=== PATIENT | female | born 1975 | race Hispanic/Latino ===

== ENCOUNTER 2020-11-12 12:52 | Inpatient (IN) | payer SELFPAY ==
[2020-11-12] MEDS ORDERED: IBUPROFEN 400 MG TAB ONE ×2 (13:40→17:16)
[2020-11-12 14:31] LABS: SARS-COV-2 RT PCR NEGATIVE (NEGATIVE)
[2020-11-12 16:38] LABS: Urine Blood 3+ (Negative); Urine Glucose Negative (Negative); Urine Protein 2+ (Negative); Urine Specific Gravity 1.025 (1.005-1.030); Urine pH 5.5 (5.0-7.0)
[2020-11-12 16:45] LABS: Absolute Lymphocytes (CBC) 1.5 K/uL (0.7-4.9); Basophils % 0.3 % (0-1.3); Hematocrit 36.3 % (36.0-45.0); Lymphocytes % 9.4 % (15.3-44.8); MPV 6.9 fL (7.6-11.3); RBC Red Blood Cell Count 4.12 M/uL (3.86-4.86)
[2020-11-12 16:53] LABS: Protime INR 1.32
[2020-11-12 16:57] LABS: Urine Bacteria >50 /HPF (<20); Urine RBC <5 /HPF (NONE SEEN)
[2020-11-12 17:05] LABS: ALT/SGPT 75 U/L (12-78); AST/SGOT 41 U/L (15-37); Albumin 3.5 g/dL (3.4-5.0); Alkaline Phosphatase 194 U/L (45-117); BUN Blood Urea Nitrogen 13 mg/dL (7-18); Bicarbonate 23 mmol/L (21-32); Bilirubin Direct 0.2 mg/dL (0-0.2); Bilirubin Total 0.4 mg/dL (0.2-1.0); Creatine Phosphokinase 29 U/L (26-192); Glucose Level 117 mg/dL (74-106); Lipase 50 U/L (73-393); Potassium 3.6 mmol/L (3.5-5.1); Protein, Total 8.7 g/dL (6.4-8.2); Sodium Level 131 mmol/L (136-145); Troponin (Emerg Dept Use Only) < 0.02 ng/mL (0.0-0.045)
[2020-11-12 17:13] LABS: Urine Specific Gravity/Preg 1.025 (1.005-1.030)
--- NOTE | 2020-11-12 17:15 | RAD REPORT ---
EXAM DESCRIPTION: RAD - Chest Pa And Lat (2 Views) - 11/12/2020 4:58 pm CLINICAL HISTORY: COUGH Chest pain. COMPARISON: <Comparisons> FINDINGS: Mild bibasilar lung opacities are present likely related to pulmonary infection. The heart is normal in size. No displaced fractures.
[2020-11-12] MEDS ORDERED: NA CHLORIDE 0.9% 500 ML ONE (17:16)
[2020-11-12] MEDS ORDERED: CEFTRIAXONE/SWI 1gm 1 GM/10 ML SYR ONE (17:16)
[2020-11-12] MEDS ORDERED: NA CHLORIDE 0.9% 2,000 ML ONE (17:16)
--- NOTE | 2020-11-12 17:22 | RAD REPORT ---
EXAM DESCRIPTION: CT - Stone Protocol - 11/12/2020 5:01 pm CLINICAL HISTORY: Flank pain. FLANK PAIN COMPARISON: No comparisons TECHNIQUE: Axial images were obtained without oral or IV contrast. Lack of contrast limits solid org an and vascular assessment. The [id number] spans the entirety of the system partially obscuring uppermost abdomen and lung bases. Coronal reformatted images were obtained and reviewed. All CT scans are performed using dose optimization technique as appropriate and may include automated exposure control or mA/KV adjustment according to patient size. FINDINGS: Mild subsegmental atelectasis is seen in both lung bases. Small hiatal hernia. Imaged portions of the liver and spleen show no suspicious findings on non-contrast imaging.Gallbladd er is distended. The pancreas and adrenal glands are normal. No pathologic lymphadenopathy in the abd omen or pelvis. No urinary tract stones or obstructive uropathy. No bowel obstruction, free air, free fluid or abscess. Normal appendix noted.Small fat containing umb ilical hernia. No significant bony abnormality. IMPRESSION: No urinary tract stones or obstructive uropathy. Gallbladder distention is seen. Recommend followup gallbladder ultrasound. Linear atelectasis is seen in both posterior lung bases.
--- NOTE | 2020-11-12 18:18 | ER ---
Nurse's Notes [facility] Name: Marla Sue Age: 45 yrs Sex: Female : 1975 Arrival Date: 11/12/2020 Time: 12:56 Bed 18 Private MD: Diagnosis: UTI/ Urinary tract infection, site not specified;Pneumonia due to other specified infectious organisms;Other specified sepsis Presentation: 11/12 13:14 Chief complaint: Patient states: body aches, fever, cough and decreased appetite that ss began Tuesday. negative covid test yesterday. Coronavirus screen: Client denies travel out of the [place] in the last 14 days. Ebola Screen: Patient denies exposure to infectious person. Patient denies travel to an Ebola-affected area in the 21 days before illness onset. Initial Sepsis Screen: Does the patient meet any 2 criteria? No. Patient's initial sepsis screen is negative. Does the patient have a suspected source of infection? No. Patient's initial sepsis screen is negative. Risk Assessment: Do you want to hurt yourself or someone else? Patient reports no desire to harm self or others. Onset of symptoms was October 2020. 13:14 Method Of Arrival: Ambulatory ss 13:14 Acuity: MARGUERITE 4 ss Historical: - Allergies: 13:16 No Known Allergies; ss - Home Meds: 13:16 None [Active]; ss - PMHx: 13:16 None; ss - PSHx: 13:16 None; ss - Immunization history:: Client reports receiving the 2nd dose of the Covid vaccine. - Social history:: Smoking status: Patient denies any tobacco usage or history of. Screenin:59 Abuse screen: Denies threats or abuse. Nutritional screening: No deficits noted. aa5 Tuberculosis screening: No symptoms or risk factors identified. Fall Risk None identified. Assessment: 15:50 General: Appears uncomfortable, Behavior is calm, cooperative. Pain: Complains of pain aa5 in left side of head Pain currently is 9 out of 10 on a pain scale. Quality of pain is described as aching, Pain began 2-3 days ago. Is continuous. Neuro: Level of Consciousness is awake, alert, obeys commands, Oriented to person, place, time, situation. Cardiovascular: Heart tones S1 S2 present Rhythm is regular. Respiratory: Reports slight cough Airway is patent Respiratory effort is even, unlabored, Respiratory pattern is regular, symmetrical, Breath sounds are clear bilaterally. GI: Abdomen is round non-distended, Bowel sounds present X 4 quads. Abd is soft and non tender X 4 quads. Reports LUQ and LLQ pain. Report vomiting on Tuesday, denies any vomiting since then. Denies diarrhea. : No signs and/or symptoms were reported regarding the genitourinary system. Denies burning with urination. EENT: No signs and/or symptoms were reported regarding the EENT system. Derm: Skin is pink, warm \T\ dry. Musculoskeletal: Range of motion: intact in all extremities. 23:58 Reassessment: Patient is alert, oriented x 3, equal unlabored respirations, skin ch4 warm/dry/pink. Vital Signs: 13:14 BP 134 / 84; Pulse 127; Resp 20; Temp 103(O); Pulse Ox 96% ; Weight 76.2 kg; Height 5 ss ft. 3 in. (160.02 cm); Pain 10/10; 15:56 BP 121 / 78; Pulse 102; Resp 18 S; Temp 99.1(O); Pulse Ox 95% on R/A; aa5 17:00 BP 116 / 77; Pulse 97; Resp 18; Pulse Ox 96% on R/A; kg 18:00 BP 117 / 79; Pulse 104; Resp 18; Pulse Ox 96% on R/A; kg 18:49 BP 125 / 70; Pulse 104; Resp 20; Temp 98.3; Pulse Ox 99% on R/A; Pain 0/10; ch5 20:00 BP 122 / 78; Pulse 100; Resp 20; Pulse Ox 96% ; kg 22:42 BP 125 / 82; Pulse 112; Resp 18; Temp 99.1(TE); Pulse Ox 99% on R/A; ch4 23:57 BP 131 / 82; Pulse 113; Resp 18; Temp 99.1; Pulse Ox 98% on R/A; ch4 13:14 Body Mass Index 29.76 (76.20 kg, 160.02 cm) ED Course: 12:56 Patient arrived in ED. as 13:16 Triage completed. ss 13:16 Arm band placed on right wrist. ss 14:46 Flu Sent. sv 15:19 Page, Jeffrey, PA is PHCP. cp 15:19 Jeffrey Guerrero MD is Attending Physician. cp 16:10 Zari Granados, RN is Primary Nurse. kg 16:15 Bed in low position. Call light in reach. Side rails up X 1. Warm blanket given. Verbal jp3 reassurance given. Pulse ox on. NIBP on. 16:15 Inserted saline lock: 18 gauge in right wrist, using aseptic technique. Blood collected.jp3 16:15 Initial lab(s) drawn, by me, sent to lab. First set of blood cultures drawn by me. jp3 16:30 Second set of blood cultures drawn by me. jp3 16:31 Urine collected: clean catch specimen, clear, davis colored. jp3 16:54 XRAY Chest Pa And Lat (2 Views) In Process Unspecified. EDMS 17:02 CT Stone Protocol In Process Unspecified. EDMS 18:15 US Abdomen Limited In Process Unspecified. EDMS 18:17 Zeb Ureña PA is Hospitalizing Provider. cp 11/13 01:24 Naseem Cervantes is Hospitalizing Provider. cp Administered Medications: 11/12 13:17 Drug: Motrin (ibuprofen) 800 mg Route: PO; ss 17:20 Drug: Rocephin - (cefTRIAXone) 1 grams Route: IVPB; Infused Over: 30 mins; Site: right kg wrist; 20:26 Follow up: Response: No adverse reaction; IV Status: Completed infusion; IV Intake: 10mlkg 17:20 Drug: Zithromax (azithromycin) 500 mg Route: IVPB; Infused Over: 1 hrs; Site: right kg wrist; 20:26 Follow up: Response: No adverse reaction; IV Status: Completed infusion kg 17:40 Drug: NS 0.9% (30 ml/kg) 30 ml/kg Route: IV; Rate: bolus; Site: right wrist; kg 17:52 Drug: NS 0.9% (30 ml/kg) 30 ml/kg Route: IV; Rate: bolus; Site: right wrist; kg 18:24 Drug: NS 0.9% (30 ml/kg) 30 ml/kg Route: IV; Rate: bolus; Site: right wrist; kg 20:27 Follow up: Response: No adverse reaction; IV Status: Completed infusion; IV Intake: kg 2286ml Point of Care Testing: Urine : 16:42 hCG Reading: Negative; Control Reading: Positive; jp3 Intake: 20:26 IV: 10ml; Total: 10ml. kg 20:27 IV: 2286ml; Total: 2296ml. kg Outcome: 18:17 Decision to Hospitalize by Provider. domingo 11/13 03:29 Patient left the ED. ch4 Signatures: Dispatcher [employer] EDCici Melissa, RN RN Olga Morris Audri, RN RN aa5 Katya Khoury RN RN ss Jeffrey Jackman, ESTHER PA Jer Pereira jp3 Zari Granados, LIN RN kg Lucia Painter, RN RN ch4 Rafal Patterson RN RN ch5
--- NOTE | 2020-11-12 18:19 | EDPHYS ---
Physician Documentation [facility] Name: Marla Sue Age: 45 yrs Sex: Female : 1975 Arrival Date: 11/12/2020 Time: 12:56 Bed 18 Private MD: ED Physician Jeffrey Guerrero HPI: 11/12 16:00 This 45 yrs old Female presents to ER via Ambulatory with complaints of Pain cp All Over, Decreased Appetite, Fever. 16:00 The patient reports fever, with an emergency department temperature of 103 degrees cp Fahrenheit. 16:00 Onset: The symptoms/episode began/occurred 3 day(s) ago. Associated signs and symptoms: cp Pertinent positives: abdominal pain, cough, headache, Pertinent negatives: diarrhea, vomiting. Historical: - Allergies: 13:16 No Known Allergies; ss - Home Meds: 13:16 None [Active]; ss - PMHx: 13:16 None; ss - PSHx: 13:16 None; ss - Immunization history:: Client reports receiving the 2nd dose of the Covid vaccine. - Social history:: Smoking status: Patient denies any tobacco usage or history of. ROS: 16:05 Constitutional: Positive for body aches, poor PO intake, Negative for fever. cp 16:05 Eyes: Negative for injury, pain, redness, and discharge. cp 16:05 ENT: Negative for drainage from ear(s), ear pain, sore throat, difficulty swallowing, difficulty handling secretions. 16:05 Cardiovascular: Negative for chest pain, edema, palpitations. 16:05 Respiratory: Positive for cough, with no reported sputum, Negative for shortness of breath, wheezing. 16:05 Abdomen/GI: Positive for abdominal pain, anorexia, of the left upper quadrant and left lower quadrant. 16:05 : Negative for urinary symptoms, pelvic pain, vaginal bleeding, vaginal discharge. 16:05 Skin: Negative for rash. 16:05 Neuro: Positive for headache, Negative for altered mental status, dizziness, weakness. Exam: 16:10 Constitutional: The patient appears in no acute distress, alert, awake, cp non-diaphoretic, non-toxic, well developed, well nourished. 16:10 Head/Face: Normocephalic, atraumatic. cp 16:10 Eyes: Periorbital structures: appear normal, Conjunctiva: normal, no exudate, no injection, Sclera: no appreciated abnormality, Lids and lashes: appear normal, bilaterally. 16:10 ENT: External ear(s): are unremarkable, Nose: is normal, Mouth: Lips: moist, Oral mucosa: moist, Posterior pharynx: Airway: no evidence of obstruction, patent, Tonsils: are normal in appearance. 16:10 Neck: ROM/movement: is normal, is supple, without pain, no range of motions limitations, no meningismus. 16:10 Chest/axilla: Inspection: normal, Palpation: is normal, no crepitus, no tenderness. 16:10 Cardiovascular: Rate: tachycardic, Rhythm: regular, Edema: is not appreciated, JVD: is not appreciated. 16:10 Respiratory: the patient does not display signs of respiratory distress, Respirations: normal, no use of accessory muscles, no retractions, labored breathing, is not present, Breath sounds: are clear throughout, no decreased breath sounds, no stridor, no wheezing. 16:10 Abdomen/GI: Inspection: abdomen appears normal, Bowel sounds: active, all quadrants, Palpation: soft, in all quadrants, mild abdominal tenderness, in the left upper quadrant and left lower quadrant, rebound tenderness, is not appreciated, voluntary guarding, is not appreciated, involuntary guarding, is not appreciated. 16:10 Back: CVA tenderness, is absent. 16:10 Skin: cellulitis, is not appreciated, no rash present. 16:10 Neuro: Orientation: to person, place \T\ time. Mentation: is normal, Motor: is normal. 17:25 ECG was reviewed by the Attending Physician. cp Vital Signs: 13:14 BP 134 / 84; Pulse 127; Resp 20; Temp 103(O); Pulse Ox 96% ; Weight 76.2 kg; Height 5 ss ft. 3 in. (160.02 cm); Pain 10/10; 15:56 BP 121 / 78; Pulse 102; Resp 18 S; Temp 99.1(O); Pulse Ox 95% on R/A; aa5 17:00 BP 116 / 77; Pulse 97; Resp 18; Pulse Ox 96% on R/A; kg 18:00 BP 117 / 79; Pulse 104; Resp 18; Pulse Ox 96% on R/A; kg 18:49 BP 125 / 70; Pulse 104; Resp 20; Temp 98.3; Pulse Ox 99% on R/A; Pain 0/10; ch5 20:00 BP 122 / 78; Pulse 100; Resp 20; Pulse Ox 96% ; kg 22:42 BP 125 / 82; Pulse 112; Resp 18; Temp 99.1(TE); Pulse Ox 99% on R/A; ch4 23:57 BP 131 / 82; Pulse 113; Resp 18; Temp 99.1; Pulse Ox 98% on R/A; ch4 13:14 Body Mass Index 29.76 (76.20 kg, 160.02 cm) ss MDM: 15:49 Patient medically screened. 19:05 Data reviewed: vital signs, nurses notes, lab test result(s), EKG, radiologic studies, cp CT scan, plain films, ultrasound. 19:05 Test interpretation: by ED physician or midlevel provider: ECG, plain radiologic cp studies. 11/12 13:22 Order name: Flu ss 11/12 14:31 Order name: COVID-19/FLU A+B; Complete Time: 16:17 EDMS 11/12 17:40 Interpretation: Reviewed. 11/12 15:54 Order name: Urine Microscopic Only; Complete Time: 17:32 11/12 17:32 Interpretation: Normal except: UWBC 5-10; UBACT >50. 11/12 15:54 Order name: Basic Metabolic Panel; Complete Time: 17:32 11/12 17:33 Interpretation: Normal except: NA 131; GLUC 117. 11/12 15:54 Order name: Blood Culture Adult (2) 11/12 15:54 Order name: CBC with Diff; Complete Time: 17:32 11/12 17:33 Interpretation: Normal except: WBC 15.40; PLT 553; MPV 6.9; KELLY% 79.5; LYM% 9.4; NEUT A cp 12.3; MNA 1.7. 11/12 15:54 Order name: CPK; Complete Time: 17:32 cp 11/12 15:54 Order name: LFT's; Complete Time: 17:32 cp 11/12 17:33 Interpretation: Normal except: AST 41; ALK 194; TP 8.7; GLOB 5.2; A/G 0.7. 11/12 15:54 Order name: Lactate; Complete Time: 17:32 cp 11/12 17:34 Interpretation: Within normal limits. cp 11/12 15:54 Order name: Lipase; Complete Time: 17:32 cp 11/12 15:54 Order name: Procalcitonin; Complete Time: 17:38 cp 11/12 17:38 Interpretation: Abnormal: Procalcitonin 32.38. cp 11/12 15:54 Order name: Protime (+inr); Complete Time: 17:32 cp 11/12 15:54 Order name: XRAY Chest Pa And Lat (2 Views); Complete Time: 17:32 cp 11/12 15:54 Order name: Urine Dipstick-Ancillary (obtain specimen); Complete Time: 16:32 cp 11/12 15:54 Order name: Urine Test (obtain specimen); Complete Time: 16:32 cp 11/12 15:54 Order name: Troponin (emerg Dept Use Only); Complete Time: 17:32 cp 11/12 15:54 Order name: Urine Culture cp 11/12 15:54 Order name: Accucheck; Complete Time: 16:31 cp 11/12 15:54 Order name: Cardiac monitoring; Complete Time: 17:51 cp 11/12 16:29 Order name: Glucose, Ancillary Testing; Complete Time: 16:40 EDMS 11/12 16:38 Order name: Urine Dipstick-Ancillary; Complete Time: 16:40 EDMS 11/12 17:39 Interpretation: Normal except: UKET Trace; UBLD 3+; UPROT 2+; U NIT Positive; UESTR cp Trace. 11/12 16:40 Order name: CT Stone Protocol; Complete Time: 17:32 cp 11/12 16:40 Order name: Urine --Ancillary (enter results); Complete Time: 17:32 bd 11/12 17:36 Order name: US Abdomen Limited; Complete Time: 19:00 cp 11/12 15:54 Order name: EKG - Nurse/Tech; Complete Time: 17:51 cp 11/12 15:54 Order name: IV Saline Lock - Large Bore; Complete Time: 16:33 cp 11/12 15:54 Order name: Labs collected and sent; Complete Time: 16:31 cp 11/12 15:54 Order name: O2 Per Protocol; Complete Time: 16:31 cp 11/12 15:54 Order name: O2 Sat Monitoring; Complete Time: 16:31 cp EC:25 Rate is 90 beats/min. Rhythm is regular. CT interval is normal. QRS interval is normal. cp QT interval is normal. T waves are Inverted in lead aVR. Interpreted by me. Reviewed by me. Administered Medications: 13:17 Drug: Motrin (ibuprofen) 800 mg Route: PO; ss 17:20 Drug: Rocephin - (cefTRIAXone) 1 grams Route: IVPB; Infused Over: 30 mins; Site: right kg wrist; 20:26 Follow up: Response: No adverse reaction; IV Status: Completed infusion; IV Intake: 10mlkg 17:20 Drug: Zithromax (azithromycin) 500 mg Route: IVPB; Infused Over: 1 hrs; Site: right kg wrist; 20:26 Follow up: Response: No adverse reaction; IV Status: Completed infusion kg 17:40 Drug: NS 0.9% (30 ml/kg) 30 ml/kg Route: IV; Rate: bolus; Site: right wrist; kg 17:52 Drug: NS 0.9% (30 ml/kg) 30 ml/kg Route: IV; Rate: bolus; Site: right wrist; kg 18:24 Drug: NS 0.9% (30 ml/kg) 30 ml/kg Route: IV; Rate: bolus; Site: right wrist; kg 20:27 Follow up: Response: No adverse reaction; IV Status: Completed infusion; IV Intake: kg 2286ml Point of Care Testing: Urine : 16:42 hCG Reading: Negative; Control Reading: Positive; jp3 Disposition: 11/13 14:51 Co-signature as Attending Physician, Jeffrey Guerrero MD I agree with the assessment and zuri plan of care. Disposition Summary: 11/12/20 18:17 Hospitalization Ordered Hospitalization Status: Inpatient Admission cp Condition: Fair cp Problem: new cp Symptoms: have improved cp Bed/Room Type: Standard cp Location: Telemetry/MedSurg (Inpatient)(11/13/20 01:14) bb Room Assignment: 210(11/13/20 01:14) bb Provider: Naseem Cervantes(11/13/20 01:24) cp Diagnosis - UTI/ Urinary tract infection, site not specified cp - Pneumonia due to other specified infectious organisms cp - Other specified sepsis cp Forms: - Medication Reconciliation Form cp - SBAR form cp Signatures: Dispatcher [employer] EDMS Jeffrey Guerrero MD MD cha Ballard, Brenda, RN RN bb Katya Khoury RN RN ss Cindy Uriostegui RN RN tl1 Jeffrey Jackman PA PA cp Graham, Kristen, LIN RN kg Corrections: (The following items were deleted from the chart) 11/12 13:51 13:19 CORONAVIRUS+MR.LAB.BRZ ordered. EDMS EDMS 13:52 13:23 Influenza Screen (A ordered. EDMS EDMS 21:18 18:17 Telemetry/MedSurg (Inpatient) cp tl1 21:18 18:17 cp tl1 11/13 01:14 11/12 21:18 [facility] ER HOLD tl1 11/13 01:14 11/12 21:18 ERHOLD- tl1 11/13 01:24 11/12 18:17 Zeb Ureña cp cp
--- NOTE | 2020-11-12 18:36 | RAD REPORT ---
EXAM DESCRIPTION: US - Abdomen Exam Limited - 11/12/2020 6:17 pm CLINICAL HISTORY: gallbladder distension;Abd pain COMPARISON: No comparisons FINDINGS: The gallbladder demonstrates distention however no gallstones. No pericholecystic fluid or gallbladder wall thickening. The common bile duct is normal measuring 4 mm. The liver demonstrates prominent fatty liver. IMPRESSION: No worrisome gallbladder/ biliary tree findings. Gallbladder distention may be related to fasting state. Prominent diffuse fatty liver.
--- NOTE | 2020-11-12 20:46 | P.HP ---
Certification for Inpatient Patient admitted to: Inpatient With expected LOS: <2 Midnights Patient will require the following post-hospital care: None Practitioner: I am a practitioner with admitting privileges, knowledge of patient current condition, hospital course, and medical plan of care. Services: Services provided to patient in accordance with Admission requirements found in Title 42 Section 412.3 of the Code of Federal Regulations Patient History Date of Service: 11/12/20 Primary Care Provider: Fredy Reason for admission: UTI, pneumonia History of Present Illness: Ms. Sue is a 45 yo F who presents with four days of fever of 103F, malaise, anorexia, nausea and vomiting. She also reports abdominal pain, dry cough, headache, night sweats and chills, mild SOB. Denies dysuria, hematuria. She initially flagged sepsis, and received sepsis protocol fluids, ibuprofen, ceftriaxone and azithromycin in the ED. Vitals have improved. Lactate normal. Procal 32.38. Wbc 15.4. Na 131. alk phos 194. CXR shows mild bibasilar lung opacities likely related to pulmonary infection. CT abdomen shows no urinary tract stones or obstructive uropathy, gallbladder distention seen. Ultrasound of the gallbladder showed no worrisome gallbladder/biliary tree findings, gallbladder distention may be related to fasting state. UA positive for nitrites and leukocyte esterase. Home medications list reviewed: No - Past Medical/Surgical History Has patient received pneumonia vaccine in the past: No Diabetic: No Past Medical History: Patient denies medical history Past Surgical History: Patient denies surgical history - Family History Family History: Reviewed- Non-Contributory - Social History Smoking Status: Never smoker Alcohol use: No CD- Drugs: No Caffeine use: No Place of Residence: Home Review of Systems 10-point ROS is otherwise unremarkable General: Fever, Chills, Sweats, Malaise, As per HPI Respiratory: Cough, Shortness of Breath, As per HPI Gastrointestinal: Nausea, Vomiting, Abdominal Pain, As per HPI Physical Examination - Physical Exam General: Alert, In no apparent distress HEENT: Atraumatic, PERRLA, Mucous membr. moist/pink, EOMI, Sclerae nonicteric Neck: Supple, 2+ carotid pulse no bruit, No LAD, Without JVD or thyroid abnormality Respiratory: Normal air movement, Rhonchi/gurgles Cardiovascular: Regular rate/rhythm, Normal S1 S2, Other (tachycardic) Capillary refill: <2 Seconds Gastrointestinal: Normal bowel sounds, No ascites, No masses, No rebound, No guarding, Tenderness Musculoskeletal: No tenderness Integumentary: No rashes Neurological: Normal speech, Normal strength at 5/5 x4 extr, Normal tone, Normal affect Lymphatics: No axilla or inguinal lymphadenopathy - Studies Laboratory Data (last 24 hrs) 11/12/20 16:15: PT 15.2 H, INR 1.32 11/12/20 16:15: WBC 15.40 H, Hgb 12.2, Hct 36.3, Plt Count 553 H 11/12/20 16:15: Sodium 131 L, Potassium 3.6, BUN 13, Creatinine 0.57, Glucose 117 H, Total Bilirubin 0.4, AST 41 H, ALT 75, Alkaline Phosphatase 194 H, Lipase 50 L Assessment and Plan - Problems (Diagnosis) (1) UTI (urinary tract infection) Current Visit: Yes Status: Acute Qualifiers: Urinary tract infection type: site unspecified Hematuria presence: with hematuria Qualified Code(s): N39.0 - Urinary tract infection, site not specified; R31.9 - Hematuria, unspecified (2) Pneumonia Current Visit: Yes Status: Acute Qualifiers: Pneumonia type: due to unspecified organism Laterality: bilateral Lung location: lower lobe of lung Qualified Code(s): J18.9 - Pneumonia, unspecified organism - Plan continue IV ceftriaxone and azithromycin tylenol PRN for fever continue IVF hydration repeat procal in the AM pain management as needed blood, sputum, and urine cultures pending DVT ppx Discharge Plan: Home Plan to discharge in: 48 Hours - Advance Directives Does patient have a Living Will: No Does patient have a Durable POA for Healthcare: No - Code Status/Comfort Care Code Status Assessed: Yes (full code ) Critical Care: No Time Spent Managing Pts Care (In Minutes): 70
[2020-11-13] MEDS ORDERED: BENZONATATE 100 MG CAP PO PRN (01:32)
[2020-11-13] MEDS: NA CHLORIDE 0.9% 1,000 ML IV SCH ×3 (01:32→20:29)
[2020-11-13] MEDS: ACETAMINOPHEN 500 MG TAB PO PRN ×4 (01:47→17:31)
[2020-11-13 01:52] VITALS: BMI 29.7
[2020-11-13] MEDS ORDERED: ACETAMINOPHEN 500 MG TAB ONE (01:59)
--- NOTE | 2020-11-13 03:13 | P.INFCA ---
Sepsis Focused Assessment - Focused Assessment Complete? Sepsis Focused Assessment Completed?: Yes - Sepsis Screen Result Severe Sepsis: Negative Septic Shock: Negative - Evaluation Current stage of sepsis: Ruled out Reason for ruling out sepsis: vitals improved - Vital Signs Reviewed: Yes Temperature: 98.1 F Heart rate: 111 Respiratory Rate: 26 O2 Sat by Pulse Oximetry: 91 - Examination Heart: Tachycardia Lungs: Diminished air movement, Rhonchi Peripheral pulses: 3+ Normal Peripheral pulse location: Radial Capillary refill: <2 Seconds Skin examination: Normal turgor
[2020-11-13 04:02] LABS: Absolute Lymphocytes (CBC) 1.8 K/uL (0.7-4.9); Basophils % 0.6 % (0-1.3); Hematocrit 32.5 % (36.0-45.0); Lymphocytes % 11.3 % (15.3-44.8); MPV 6.7 fL (7.6-11.3); RBC Red Blood Cell Count 3.68 M/uL (3.86-4.86)
[2020-11-13 04:32] LABS: ALT/SGPT 62 U/L (12-78); AST/SGOT 30 U/L (15-37); Albumin 2.9 g/dL (3.4-5.0); Alkaline Phosphatase 177 U/L (45-117); BUN Blood Urea Nitrogen 8 mg/dL (7-18); Bicarbonate 23 mmol/L (21-32); Bilirubin Total 0.3 mg/dL (0.2-1.0); Glucose Level 114 mg/dL (74-106); HDL Cholesterol 33 mg/dL (40-60); LDL Cholesterol, Calculated 109 (<130); Phosphorus 2.8 mg/dL (2.5-4.9); Potassium 3.7 mmol/L (3.5-5.1); Protein, Total 7.4 g/dL (6.4-8.2); Sodium Level 137 mmol/L (136-145); Thyroid Stimulating Hormone 0.433 uIU/mL (0.360-3.740)
[2020-11-13] MEDS: MORPHINE 2 MG/ML SYR IV PRN ×2 (05:26→20:29)
[2020-11-13] MEDS: ENOXAPARIN 40 MG/0.4 ML SQ SCH (08:30)
--- NOTE | 2020-11-13 13:15 | P.PN ---
Subjective Date of Service: 11/13/20 Primary Care Provider: Fredy Chief Complaint: UTI, pneumonia Subjective: Improving (fever and headache are better but still present) Review of Systems 10-point ROS is otherwise unremarkable Physical Examination - Vital Signs Temperature: 98.8 F Blood Pressure: 111/61 Pulse: 117 Respirations: 19 Pulse Ox (%): 95 - Physical Exam General: Alert, Oriented x3, Cooperative, Other (appears mildly uncomfortable) HEENT: Atraumatic, Normocephalic Neck: Supple Respiratory: Normal air movement Cardiovascular: No edema, Other (tachycardic) Capillary refill: <2 Seconds Gastrointestinal: Normal bowel sounds, Soft and benign, No tenderness Musculoskeletal: No swelling, No contractures Integumentary: No rashes, No breakdown, No cyanosis, Other (warm) Neurological: Normal speech, Normal tone, Normal affect Lymphatics: No axilla or inguinal lymphadenopathy - Studies Laboratory Data (last 24 hrs) 11/12/20 16:15: PT 15.2 H, INR 1.32 11/12/20 16:15: WBC 15.40 H, Hgb 12.2, Hct 36.3, Plt Count 553 H 11/12/20 16:15: Sodium 131 L, Potassium 3.6, BUN 13, Creatinine 0.57, Glucose 117 H, Total Bilirubin 0.4, AST 41 H, ALT 75, Alkaline Phosphatase 194 H, Lipase 50 L Assessment And Plan - Current Problems (Diagnosis) (1) Pneumonia Current Visit: Yes Status: Acute Qualifiers: Pneumonia type: due to unspecified organism Laterality: bilateral Lung location: lower lobe of lung Qualified Code(s): J18.9 - Pneumonia, unspecified organism (2) UTI (urinary tract infection) Current Visit: Yes Status: Acute Qualifiers: Urinary tract infection type: site unspecified Hematuria presence: with hematuria Qualified Code(s): N39.0 - Urinary tract infection, site not specified; R31.9 - Hematuria, unspecified - Plan continue IV ceftriaxone and azithromycin tylenol PRN for fever continue IVF hydration continue to monitor BMP, CBC, procal pain management as needed urine preliminary shows gram neg rods blood, sputum, and urine cultures pending DVT ppx
[2020-11-13] MEDS: AZITHROMYCIN IV 500 MG in NA CHLORIDE 0.9% 250 ML IVPB SCH (13:43)
[2020-11-13] MEDS ORDERED: CEFTRIAXONE 1 GM/NS 50 ML 1 GM/50 ML BAG IV SCH (17:00)
[2020-11-13] MEDS ORDERED: AZITHROMYCIN IV 500 MG in NA CHLORIDE 0.9% 250 ML IVPB SCH (17:00)
[2020-11-13] MEDS: CEFTRIAXONE/SWI 1gm 1 GM/10 ML SYR IV SCH (17:26)
[2020-11-13] MEDS: ONDANSETRON 4 MG/2 ML VIAL IV PRN (21:37)
[2020-11-14] MEDS: ACETAMINOPHEN 500 MG TAB PO PRN ×4 (00:51→17:46)
[2020-11-14 05:58] LABS: Absolute Lymphocytes (CBC) 2.2 K/uL (0.7-4.9); Basophils % 0.5 % (0-1.3); Hematocrit 29.2 % (36.0-45.0); Lymphocytes % 18.7 % (15.3-44.8); MPV 6.7 fL (7.6-11.3)
[2020-11-14 06:14] LABS: BUN Blood Urea Nitrogen 6 mg/dL (7-18); Bicarbonate 25 mmol/L (21-32); Glucose Level 109 mg/dL (74-106); Potassium 3.7 mmol/L (3.5-5.1); Sodium Level 137 mmol/L (136-145)
[2020-11-14] MEDS: NA CHLORIDE 0.9% 1,000 ML IV SCH ×2 (07:32→16:07)
[2020-11-14] MEDS: AZITHROMYCIN IV 500 MG in NA CHLORIDE 0.9% 250 ML IVPB SCH (08:17)
[2020-11-14] MEDS: ENOXAPARIN 40 MG/0.4 ML SQ SCH (08:17)
[2020-11-14] MEDS ORDERED: POTASSIUM CL SA 10 MEQ TAB PO ONE (09:00)
[2020-11-14] MEDS: ONDANSETRON 4 MG/2 ML VIAL IV PRN (10:37)
[2020-11-14] MEDS: CEFTRIAXONE/SWI 1gm 1 GM/10 ML SYR IV SCH (16:07)
[2020-11-15 00:12] VITALS: O2SAT 95
[2020-11-15] MEDS: NA CHLORIDE 0.9% 1,000 ML IV SCH ×2 (01:55→12:32)
[2020-11-15] MEDS: ACETAMINOPHEN 500 MG TAB PO PRN (01:57)
[2020-11-15 04:25] LABS: Absolute Lymphocytes (CBC) 2.4 K/uL (0.7-4.9); Basophils % 0.6 % (0-1.3); Hematocrit 31.4 % (36.0-45.0); Lymphocytes % 23.2 % (15.3-44.8); MPV 6.7 fL (7.6-11.3); RBC Red Blood Cell Count 3.55 M/uL (3.86-4.86)
[2020-11-15 04:38] LABS: BUN Blood Urea Nitrogen 7 mg/dL (7-18); Bicarbonate 25 mmol/L (21-32); Glucose Level 99 mg/dL (74-106); Potassium 3.9 mmol/L (3.5-5.1); Sodium Level 140 mmol/L (136-145)
[2020-11-15] MEDS ORDERED: POTASSIUM CL SA 10 MEQ TAB PO ONE (09:00)
[2020-11-15] MEDS: ENOXAPARIN 40 MG/0.4 ML SQ SCH (10:16)
[2020-11-15] MEDS: AZITHROMYCIN IV 500 MG in NA CHLORIDE 0.9% 250 ML IVPB SCH (10:17)
[2020-11-15 12:40] VITALS: BP 123/74; TEMP 98.3
--- NOTE | 2020-11-15 14:34 | P.DS ---
Admission Date: 11/13/20 Discharge Date: 11/15/20 Primary Care Provider: Fredy Disposition: ROUTINE DISCHARGE Discharge Condition: GOOD Reason for Admission: UTI, pneumonia Brief History of Present Illness: Patient was admitted to the hospital with pneumonia and uti. Please see Mrs Dominguez note Hospital Course: Patient is doing well today. No fevers for over 24 hours. She is tolerating orals. She has e. coli in the urine. Will discharge her home on Levaquin. If she needs follow she can make an appointment with Vilma Jasmine. Who speaks [place] and communicate well with her. Vital Signs/Physical Exam: Temp Pulse Resp BP Pulse Ox 98.3 F 90 17 123/74 95 11/15/20 12:00 11/15/20 12:00 11/15/20 12:00 11/15/20 12:00 11/15/20 12:00 General: Alert, In no apparent distress HEENT: Atraumatic, PERRLA, EOMI Neck: Supple, JVD not distended Respiratory: Clear to auscultation bilaterally, Normal air movement Cardiovascular: Regular rate/rhythm, Normal S1 S2 Gastrointestinal: Normal bowel sounds, No tenderness Musculoskeletal: No tenderness Integumentary: No rashes Neurological: Normal speech, Normal tone, Normal affect Lymphatics: No axilla or inguinal lymphadenopathy Laboratory Data at Discharge: WBC 10.40 K/uL (4.3-10.9) 11/15/20 03:45 Hgb 10.6 g/dL (12.0-15.0) L 11/15/20 03:45 Hct 31.4 % (36.0-45.0) L 11/15/20 03:45 Plt Count 582 K/uL (152-406) H 11/15/20 03:45 PT 15.2 SECONDS (9.5-12.5) H 11/12/20 16:15 INR 1.32 11/12/20 16:15 Sodium 140 mmol/L (136-145) 11/15/20 03:45 Potassium 3.9 mmol/L (3.5-5.1) 11/15/20 03:45 BUN 7 mg/dL (7-18) 11/15/20 03:45 Creatinine 0.48 mg/dL (0.55-1.3) L 11/15/20 03:45 Glucose 99 mg/dL (74-106) 11/15/20 03:45 Phosphorus 2.8 mg/dL (2.5-4.9) 11/13/20 03:47 Magnesium 2.0 mg/dL (1.8-2.4) 11/13/20 03:47 Total Bilirubin 0.3 mg/dL (0.2-1.0) 11/13/20 03:47 AST 30 U/L (15-37) 11/13/20 03:47 ALT 62 U/L (12-78) 11/13/20 03:47 Alkaline Phosphatase 177 U/L (45-117) H 11/13/20 03:47 Triglycerides 140 mg/dL (<150) 11/13/20 03:47 Cholesterol 170 mg/dL (<200) 11/13/20 03:47 HDL Cholesterol 33 mg/dL (40-60) L 11/13/20 03:47 Cholesterol/HDL Ratio 5.15 11/13/20 03:47 Lipase 50 U/L (73-393) L 11/12/20 16:15 Home Medications: Levofloxacin [Levaquin] 500 mg PO DAILY 5 Days #5 tablet 11/15/20 New Medications: Levofloxacin [Levaquin] 500 mg PO DAILY 5 Days #5 tablet Diet: Regular Activity: Ad scooby Followup: NONE,NONE [Primary Care Provider] - Cici Jasmine FNP BC [[employer] PROFESSIONAL] - 1-2 Weeks Physician Review: Patient Assessed, Agree with Above Assessment and Plan Time spent managing pt's care (in minutes): 25
== END 2020-11-15 16:49 | disposition home or self-care (01) | DRG 689 ==
LOC: ER 12:52 → 2ND 11-13 01:26
PROVIDERS: ADMIT Internal Medicine; ATTEND Internal Medicine
DX: N39.0 Urinary tract infection, site not specified (principal); J18.9 Pneumonia, unspecified organism; R31.9 Hematuria, unspecified; B96.20 Unspecified Escherichia coli [E. coli] as the cause of diseases classified elsewhere; Z20.828 Contact with and (suspected) exposure to other viral communicable diseases
CPT/HCPCS: 0240U; 36415; 71046; 74176; 76377; 76705; 80048; 80053; 80061; 80076; 81003; 81015; 81025; 82550; 82947; 83605; 83690; 83735; 84100; 84145; 84439; 84443; 84484; 85025; 85610; 87040; 87077; 87086; 87088; 87186; 93005; 94760; 96365; 96366; 96367; 96368; 99284; J0456; J0696; J1650; J2270; J2405; J7030; J7040; J7050